=== PATIENT | female | born 1985 | race Caucasian/White ===

== ENCOUNTER 2018-11-14 09:25 | Inpatient (IN) | payer OTHER, SELFPAY ==
[2018-11-14 09:43] VITALS: BMI 24.3
[2018-11-14] MEDS: Lactated Ringers 1,000 ML 50 ML IV ×2 (09:55→12:27)
[2018-11-14] MEDS: Oxytocin 30 units/NS 500 ml 30 UNITS/500 ML IV.SOLN IV (11:06)
[2018-11-14 11:47] LABS: Absolute Lymphocyte Count 1.56 X10^3/ul (0.83-4.51); Absolute Neutrophil Count 5.5 X10^3/uL (2.0-7.7); Basophil# 0.01 X10^3/uL; Basophil% 0.1 % (0-1); Eosinophil# 0.03 X10^3/uL; Eosinophils% 0.4 % (0-5); Hematocrit 34.2 % (37-47); Hemoglobin 11.6 g/dl (12.0-15.0); Lymphocyte # 1.56 X10^3/ul (4.0); Lymphocyte % 20.4 % (19-41); Mean Corp Hgb Conc 33.9 g/gl (32-36); Mean Corpuscular Hgb 32.2 pg (27.0-32.0); Mean Platelet Vol. 9.5 fl (6.2-12.0); Monocyte# 0.55 X10^3/uL; Monocyte% 7.2 % (0-10); Neutrophil % 71.8 % (47-70); POSITIVE COUNT NO; POSITIVE DIFFERENTIAL NO; POSITIVE MORPHOLOGY NO; Platelet Count 219 K/mm3 (150-450); RBC Distribution Width CV 13.4 % (11.6-14.6); RBC Distribution Width SD 46.9 fl (35.1-43.9); White Blood Count 7.7 K/mm3 (4.4-11.0)
[2018-11-14] MEDS: fentaNYL-bupivacaine (epidural) 100 ML BAG EPIDURAL (12:28)
[2018-11-14] MEDS: Oxytocin 30 units/NS 500 ml 30 UNITS/500 ML IV.SOLN 334 UNITS IV (13:25)
--- NOTE | 2018-11-14 13:35 | PCM.HP.BLA ---
History and Physical Date of Admission: 11/14/18 History of this : 32 yo female Ab0 with EDC 11/13/2018 by 9 weeks 5 days Ultrasound, presents to Labor and Delivery. care remarkable for - Plans at [facility] Pertinent Past Medical History: Non-smoker Allergies: No Known Allergies Medications: During - 28 mg iron-800 mcg tablet Review of Systems: Non-contributory PHYSICAL EXAMINATION General Appearence: 32 yo female in no acute distress Vital Signs: AF, VSS Heart: RRR without rubs or gallops Lungs: CTA x 2 Breasts: deferred Abdomen: gravid Pelvis: Cervix: 4/50 Presentation: cephalic Station: -2 AROM clear Fetus: Size: AGA Movement: present Heart: present Impression /Plan: Intrauterine . Preperations in progress for delivery. Expect
--- NOTE | 2018-11-14 13:37 | PCM.OPRPT ---
Vaginal Delivery Maternal Presentation: Elective Induction Method of Induction: Pitocin, Amniotomy Amniotic Membrane Rupture Type: Artificial Amniotic Fluid Description: Clear Final KANDI: 11/13/18 Final KANDI Source: US <20 weeks Gestational age: 40 Weeks and 1 Days Date of Procedure: 11/14/18 Pre-Operative Diagnosis: IUP Post-Operative Diagnosis: IUP Surgery/ Procedure Performed: Spontaneous Vaginal Delivery Type of Anesthesia: Epidural Description of Procedure: Spontaneous vaginal delivery of a viable male infant with Apgars of 8/9 from an occiput anterior presentation with clear amniotic fluid and normal three-vessel placenta. No episiotomy. Second-degree midline laceration repaired with 3-0 Rapide suture under epidural anesthesia. Sponges okay. Delivery physician: Brent Valentin MD. Presentation: Vertex Placental Delivery Description: Spontaneous Placenta Disposition: [facility] Cord Vessel Description: 3 Vessels Cord Entanglement: None Estimated Blood Loss: 250 cc Infant A gender: Male (1 minute): 8 (5 minute): 9 Episiotomy Description: None Laceration: Midline, 2nd degree Medications given after delivery: IV Pitocin Complications: None
--- NOTE | 2018-11-14 13:39 | PCM.DCVAG ---
Discharge Diet: No Restrictions Discharge Activity: May Shower, May Take a Tub Bath May resume sexual activity in: 4-6 weeks Additional Activity Instructions:: Nothing in the vagina for 4-6 weeks. You may return to work/school in 6 weeks. Call your doctor if you observe: Fever of 101 or Higher, Inability to urinate, Inability to have a bowel movement, Using more than one pad per hour Additional Instructions: If you experience any of the following, contact your healthcare provider. Bleeding that soaks a pad every hour for 2 hours Unrelieved incision or abdominal pain Swelling, redness, discharge or bleeding from your incision or episiotomy site Your incision begins to separate Problems urinating (including inability to urinate or burning while urinating). Visual changes Severe headache Flu-like symptoms Pain or redness in one of both of your breasts Pain, warmth, tenderness or swelling in your legs, especially the calf area Frequent nausea and vomiting Symptoms of depression or anxiety If you experience any of the following, call 911 or go to the nearest Emergency Room. Chest pain Problems breathing Seizure activity Partial or complete paralysis of a body part, slurred speech, weakness or drooping of the face, or a sudden inability to walk or hold your balance Allergies/Adverse Reactions: Allergies No Known Allergies Allergy (Verified 11/14/18 09:43) Medications to take at Discharge Vits [Prenatabs FA] 1 tablet PO DAILY 11/14/18 Please Follow Up With: Brent Valentin MD - [phone] When: Call to make an appointment with your doctor in 6 weeks. Primary Care Physician: Mikal Ritter MD [Primary Care Provider] - Test Results: Test results from this visit will be discussed in further detail at your follow-up appointment, if applicable.
--- NOTE | 2018-11-14 13:40 | DCINST_ITS ---
Discharge Diet: No Restrictions Discharge Activity: May Shower, May Take a Tub Bath May resume sexual activity in: 4-6 weeks Additional Activity Instructions:: Nothing in the vagina for 4-6 weeks. You may return to work/school in 6 weeks. Call your doctor if you observe: Fever of 101 or Higher, Inability to urinate, Inability to have a bowel movement, Using more than one pad per hour Additional Instructions: If you experience any of the following, contact your healthcare provider. * Bleeding that soaks a pad every hour for 2 hours * Unrelieved incision or abdominal pain * Swelling, redness, discharge or bleeding from your incision or episiotomy site * Your incision begins to separate * Problems urinating (including inability to urinate or burning while urinating). * Visual changes * Severe headache * Flu-like symptoms * Pain or redness in one of both of your breasts * Pain, warmth, tenderness or swelling in your legs, especially the calf area * Frequent nausea and vomiting * Symptoms of depression or anxiety If you experience any of the following, call 911 or go to the nearest Emergency Room. * Chest pain * Problems breathing * Seizure activity * Partial or complete paralysis of a body part, slurred speech, weakness or drooping of the face, or a sudden inability to walk or hold your balance Allergies/Adverse Reactions: Allergies No Known Allergies Allergy (Verified 11/14/18 09:43) Medications to take at Discharge Vits [Prenatabs FA] 1 tablet PO DAILY 11/14/18 Please Follow Up With: Brent Valentin MD - [phone] When: Call to make an appointment with your doctor in 6 weeks. Primary Care Physician: Mikal Ritter MD [Primary Care Provider] - Test Results: Test results from this visit will be discussed in further detail at your follow- up appointment, if applicable.
[2018-11-14] MEDS: Oxytocin 30 units/NS 500 ml 30 UNITS/500 ML IV.SOLN 167 UNITS IV (13:55)
[2018-11-14 15:25] LABS: Chlamydia Trachomatis by PCR Negative (Negative); Neisserai gonorrhoeae by PCR Negative (Negative); Probe Check PASS; Sample Adequacy Control PASS; Specimen Processing Control PASS
[2018-11-14] MEDS: Ibuprofen 600 MG Tablet PO (16:31)
[2018-11-14 20:30] VITALS: BP 102/59; PULSE 81; RESP 18; TEMP 36.7
[2018-11-14] MEDS: Acetaminophen 500 MG Tablet 1000 MG PO (20:51)
[2018-11-15 00:10] VITALS: BP 103/59; PULSE 76; RESP 18; TEMP 36.7
[2018-11-15] MEDS: Ibuprofen 600 MG Tablet PO ×3 (03:25→17:45)
[2018-11-15 03:29] VITALS: BP 112/65; PULSE 87; RESP 18; TEMP 36.6
[2018-11-15] MEDS: Acetaminophen 500 MG Tablet 1000 MG PO (08:27)
[2018-11-15 08:35] VITALS: BP 100/59; PULSE 74; RESP 14; TEMP 36.8
--- NOTE | 2018-11-15 09:24 | PCM.PN.OB ---
Subjective: Patient without complaints. Breast-feeding going well. Minimal vaginal bleeding reported. Pain well controlled. - Physical Exam Vital Signs Temp Pulse Resp BP 98.3 F 74 14 100/59 L 11/15/18 08:35 11/15/18 08:35 11/15/18 08:35 11/15/18 08:35 Oxygen Delivery Method Room Air Weight: 146 lb 2.664 oz Body Mass Index (BMI) 24.3 Intake and Output for Last 24 Hours 11/13/18 11/14/18 11/15/18 23:59 23:59 23:59 Output Total 1949 Balance -1949 Laboratory Tests Past 24 Hrs 11/14/18 11/14/18 11/14/18 09:55 09:55 11:15 WBC 7.7 RBC 3.60 L Hgb 11.6 L Hct 34.2 L MCV 95.0 MCH 32.2 H MCHC 33.9 RDW 13.4 RDW Differential 46.9 H Plt Count 219 MPV 9.5 Immature Gran % (Auto) 0.100 Neut % (Auto) 71.8 H Lymph % (Auto) 20.4 [place] % (Auto) 7.2 Eos % (Auto) 0.4 Baso % (Auto) 0.1 Absolute Neuts (auto) 5.5 Absolute Lymphs (auto) 1.56 Total Counted Not Reportable Chlam trachomat DNA PCR Negative N.gonorrhoeae DNA (PCR) Negative Blood Type A POSITIVE Antibody Screen NEGATIVE Medical Necessity - Tobacco Use Smoking Status: Never smoker Assessment/Plan Doing well day #1 status post spontaneous vaginal delivery. Continuing present care.
[2018-11-15 12:20] VITALS: BP 90/54; PULSE 74; RESP 16; TEMP 36.7
[2018-11-15 15:55] VITALS: BP 107/64; PULSE 78; RESP 16; TEMP 36.8; O2SAT 99
[2018-11-15 19:50] VITALS: BP 103/62; PULSE 75; RESP 18; TEMP 36.6
[2018-11-15] MEDS: Senna/Docusate Sodium 1 Tablet PO (20:11)
[2018-11-16 02:00] VITALS: BP 98/55; PULSE 74; RESP 18; TEMP 36.4
[2018-11-16] MEDS: Ibuprofen 600 MG Tablet PO ×2 (04:07→10:23)
[2018-11-16 10:00] VITALS: BP 102/62; PULSE 78; RESP 16; TEMP 36.6
--- NOTE | 2018-11-16 10:38 | PCM.PN.OB ---
Subjective: Patient without complaints. Breast-feeding going well. Ready to go home today. - Physical Exam Vital Signs Temp Pulse Resp BP Pulse Ox 97.9 F 78 16 102/62 99 11/16/18 10:00 11/16/18 10:00 11/16/18 10:11/16/18 10:11/15/18 15:55 Oxygen Delivery Method Room Air Weight: 146 lb 2.664 oz Body Mass Index (BMI) 24.3 Intake and Output for Last 24 Hours 11/14/18 11/15/18 11/16/18 23:59 23:59 23:59 Output Total 1949 Balance -1949 / -1949 Medical Necessity - Tobacco Use Smoking Status: Never smoker Assessment/Plan Doing well day #2 status post routine vaginal delivery. Will release to home with routine instructions.
== END 2018-11-16 12:10 | disposition home or self-care (01) | DRG 807 ==
LOC: WP 09:40
PROVIDERS: Admitting Provider Obstetrics & Gynecology; Family Provider Family Medicine; PCP Family Medicine; Referring Provider Obstetrics & Gynecology; Visit Provider Obstetrics & Gynecology
DX: O70.1 Second degree perineal laceration during delivery (principal); Z37.0 Single live birth; Z3A.40 40 weeks gestation of pregnancy
CPT/HCPCS: 59025; 59050; 85025; 86850; 86900; 87491; 87591; 99218; J7120; G0378

== ENCOUNTER → 2020-06-28 | Outpatient (CLI) | payer OTHER, SELFPAY ==
[2020-07-01 03:07] LABS: Chlamydia By Nucleic Acid AMP Negative (Negative)
[2020-07-01 06:07] LABS: Gonococcus By Nucleic Acid AMP Negative (Negative)
[2020-07-03 16:37] LABS: HPV Reflexed? NOT INDICATED
== END | disposition home or self-care (01) ==
PROVIDERS: PCP Family Medicine; Visit Provider Obstetrics & Gynecology
DX: Z12.4 Encounter for screening for malignant neoplasm of cervix (principal); Z11.3 Encounter for screening for infections with a predominantly sexual mode of transmission
CPT/HCPCS: 87491; 87591; 88175; G0145

== ENCOUNTER → 2021-01-24 | Outpatient (CLI) | payer OTHER, SELFPAY | END | disposition home or self-care (01) | LOC: LABSPEC 17:28 | PROVIDERS: PCP Family Medicine; Visit Provider Obstetrics & Gynecology | DX: Z36.85 Encounter for antenatal screening for Streptococcus B (principal) | CPT/HCPCS: 87081 ==

== ENCOUNTER 2021-02-14 17:45 | Inpatient (IN) | payer OTHER, SELFPAY ==
[2021-02-14] VITALS (28 sets, daily range): BP systolic 90–124; BP diastolic 49–70; PULSE 88–116; TEMP 36.4–37.2; O2SAT 66–100; BMI 29.2
--- NOTE | 2021-02-14 18:31 | HP.PCM.OB_ITS ---
History and Physical Date of Admission: 02/14/21 Chief complaint: Nonreassuring testing History present illness: 35-year-old G3, P2 at 39 weeks and 3 days with KANDI: 02/18/2021 9-week ultrasound arrives with nonreassuring testing. Denies headache, chest pain, shortness of breath, nausea vomiting, right upper quadrant pain. Patient states good movement. Obstetric history: G1: 38-week female 02/24/2016 G2: 40-week male 11/14/2018 G3: Current Past medical history: Denies Medications: vitamin Past surgical history: [place] teeth extraction Allergies: No known drug allergies Social history: Denies history of smoking, alcohol use, drug use Review of systems: Besides above pertinent positives were review systems performed found to be negative Physical exam: General: Normal-appearing no acute distress HEENT: Normocephalic atraumatic no cervical adenopathy Cardiac/respiratory: No use of accessory muscles, nonlabored breathing Abdomen: Soft, nontender, gravid Extremities: No peripheral edema normal peripheral pulses Psych: Normal affect normal demeanor nonpressured speech Assessment plan: 35-year-old G3, P2 at 39 weeks and 3 days with nonreassuring testing. For induction of labor at term today via Pitocin and AROM. GBS negative. Assuming stable heart tones will continue with vaginal delivery. Patient for epidural, to see anesthesia. Routine orders. CEFM
[2021-02-14] MEDS: Lactated Ringers 500 ML 999 ML IV ×2 (21:18→22:30)
[2021-02-14] MEDS: Lactated Ringers 1,000 ML 200 ML IV (21:18)
[2021-02-14 21:35] LABS: Absolute Lymphocyte Count 1.94 X10^3/uL (0.83-4.51); Basophil# 0.02 X10^3/uL; Basophil% 0.2 % (0-1); Eosinophil# 0.02 X10^3/uL; Eosinophils% 0.2 % (0-5); Hematocrit 38.8 % (37-47); Hemoglobin 13.2 g/dL (12.0-15.0); Lymphocyte # 1.94 X10^3/ul (0.83-4.51); Lymphocyte % 16.5 % (19-41); Mean Corpuscular Hgb 33.6 pg (27.0-32.0); Mean Corpuscular Volume 98.7 fL (81-99); Mean Platelet Vol. 10.3 fl (6.2-12.0); Monocyte# 0.69 X10^3/uL; Monocyte% 5.9 % (0-10); NRBC Flagged by Analyzer 0 % (0-5); Neutrophil # 9.03 X10^3/uL (2.7-7.7); Neutrophil % 76.7 % (47-70); Platelet Count 239 K/mm3 (150-450); RBC Distribution Width CV 12.8 % (11.6-14.6); RBC Distribution Width SD 46.2 fl (35.1-43.9); Red Blood Count 3.93 M/mm3 (4.2-5.4); White Blood Count 11.8 K/mm3 (4.4-11.0)
[2021-02-14] MEDS: fentaNYL-bupivacaine (epidural) 100 ML BAG EPIDURAL (22:00)
--- NOTE | 2021-02-14 23:04 | PCM.PN.OB ---
Subjective Subjective Patient now comfortable with epidural Objective Data Objective Data Vital Signs: Vital Signs Temp Pulse BP Pulse Ox 99.0 F 94 124/61 H 100 02/14/21 21:46 02/14/21 23:02 02/14/21 23:02 02/14/21 23:01 Weight: 150 lb Body Mass Index (BMI) 29.2 Lab / Micro Data Result Diagrams: 02/14/21 19:43 Labs: Laboratory Results - last 24 hr 02/14/21 19:43: WBC 11.8 H, RBC 3.93 L, Hgb 13.2, Hct 38.8, MCV 98.7, MCH 33.6 H, MCHC 34.0, RDW Std Deviation 46.2 H, RDW Coeff of [place] 12.8, Plt Count 239, MPV 10.3, Immature Gran % (Auto) 0.500, Neut % (Auto) 76.7 H, Lymph % (Auto) 16.5 L, [place] % (Auto) 5.9, Eos % (Auto) 0.2, Baso % (Auto) 0.2, Absolute Neuts (auto) 9.0 H, Absolute Lymphs (auto) 1.94, Nucleated RBC % 0 Micro: Microbiology 02/14/21 21:20 Mucosa - Nose SARS-CoV-2 Antigen (Rapid) - Final Physical Exam Const alert, oriented x3, no apparent distress, average body habitus, healthy appearing and well nourished HEENT normocephalic and moist oral mucous membranes Head and Scalp: atraumatic Neck full ROM Resp normal respiratory effort, no retractions and no use of accessory muscles Narrative: Pelvic exam: /-3. AROM clear fluid Extremity normal to inspection, full ROM and no clubbing, cyanosis or edema Skin no rashes or lesions noted and no wounds Psych mental status grossly normal, affect normal, speech normal and activity/motor behavior normal NST FHR Rate Baby A Baseline: 140 Variability:: Moderate Accelerations:: 15 x 15 Decelerations:: None FHR Category:: Category I Uterine Activity:: Every 8 minutes Assessment & Plan (1) : PLAN: Patient seen and examined. AROM for clear fluid. Will augment with Pitocin. Now comfortable with epidural.
[2021-02-14] MEDS: Oxytocin 30 units/NS 500 ml 30 UNITS/500 ML IV.SOLN IV (23:35)
[2021-02-15] VITALS (19 sets, daily range): BP systolic 91–115; BP diastolic 51–66; PULSE 68–93; RESP 16–18; TEMP 36.4–36.9; O2SAT 98
[2021-02-15] MEDS: Oxytocin 30 units/NS 500 ml 30 UNITS/500 ML IV.SOLN 334 UNITS IV (00:21)
--- NOTE | 2021-02-15 00:33 | EX.PCM.OBRPT ---
Vaginal Delivery Findings Description of Procedure: Normal spontaneous vaginal delivery of a viable female infant, vertex RADHA. Head and shoulders delivered with ease. Cord cut and clamped. Baby handed off to mom. Placenta delivered via cord traction and fundal massage. Second-degree midline perineal laceration noted and repaired in typical fashion. EBL 300 cc Apgars 9/9
[2021-02-15] MEDS: 0.9% Saline Lock 10 ML Syringe IV (02:38)
[2021-02-15] MEDS: Ibuprofen 600 MG Tablet PO ×4 (02:38→22:48)
--- NOTE | 2021-02-15 14:57 | PN.OBGYN_ITS ---
Subjective Subjective No overnight complaints. Pain well controlled. Objective Data Objective Data Vital Signs: Vital Signs Temp Pulse Resp BP Pulse Ox 98.0 F 70 16 105/58 L 100 02/15/21 12:47 02/15/21 12:47 02/15/21 12:47 02/15/21 12:47 02/14/21 23:01 Weight: 150 lb Body Mass Index (BMI) 29.2 Intake & Output: Intake and Output for Last 24 Hours 02/13/21 02/14/21 02/15/21 23:59 23:59 23:59 Intake Total 1240 / 1240 754.73 / 754.73 Balance 1240 / 1240 754.73 / 754.73 Lab / Micro Data Result Diagrams: 02/14/21 19:43 Labs: Laboratory Results - last 24 hr 02/14/21 19:43: WBC 11.8 H, RBC 3.93 L, Hgb 13.2, Hct 38.8, MCV 98.7, MCH 33.6 H , MCHC 34.0, RDW Std Deviation 46.2 H, RDW Coeff of [place] 12.8, Plt Count 239, MPV 10.3, Immature Gran % (Auto) 0.500, Neut % (Auto) 76.7 H, Lymph % (Auto) 16.5 L, [place] % (Auto) 5.9, Eos % (Auto) 0.2, Baso % (Auto) 0.2, Absolute Neuts (auto) 9.0 H, Absolute Lymphs (auto) 1.94, Nucleated RBC % 0 02/14/21 19:43: Blood Type A POSITIVE, Antibody Screen NEGATIVE Micro: Microbiology 02/14/21 21:20 Mucosa - Nose SARS-CoV-2 Antigen (Rapid) - Final Physical Exam Const alert, oriented x3, no apparent distress, average body habitus, healthy appearing and well nourished HEENT normocephalic and moist oral mucous membranes Head and Scalp: atraumatic Neck full ROM Resp normal respiratory effort, no retractions and no use of accessory muscles Extremity normal to inspection, full ROM and no clubbing, cyanosis or edema Psych mental status grossly normal, affect normal, speech normal and activity/motor behavior normal Assessment & Plan (1) : PLAN: day 1. Breast-feeding. Pain well controlled. Patient with positive hepatitis C antibody negative hepatitis C viral load undetectable. Patient with no hepatitis exposure, denies IV drug use, has not had blood transfusions. False positive versus previous hepatitis C infection. Will obtain repeat hepatitis C antibody and reevaluate. Likely discharge home dago [facility]
[2021-02-16 01:20] VITALS: BP 89/44; PULSE 73; RESP 18
[2021-02-16] MEDS: Ibuprofen 600 MG Tablet PO (06:25)
--- NOTE | 2021-02-16 07:50 | PCM.PN.OB ---
Subjective Subjective No issues overnight. Inquires about Hep C testing. She is nursing, feeding well. Denies heavy lochia. She is sore this morning, but pain is manageable with Ibuprofen. No complaints. Objective Data Objective Data Vital Signs: Vital Signs Temp Pulse Resp BP Pulse Ox 98.3 F 73 18 89/44 L 98 02/15/21 20:51 02/16/21 01:20 02/16/21 01:20 02/16/21 01:20 02/15/21 16:15 Oxygen Delivery Method Room Air Weight: 68.039 kg Body Mass Index (BMI) 29.2 Intake & Output: Intake and Output for Last 24 Hours 02/14/21 02/15/21 02/16/21 23:59 23:59 23:59 Intake Total 1240 / 1240 754.73 / 754.73 Balance 1240 / 1240 754.73 / 754.73 Lab / Micro Data Result Diagrams: 02/14/21 19:43 Micro: Microbiology 02/14/21 21:20 Mucosa - Nose SARS-CoV-2 Antigen (Rapid) - Final Physical Exam Const alert, oriented x3 and no apparent distress Resp normal respiratory effort and normal air movement Cardio regular rate, regular rhythm, S1 normal heart sound and S2 normal heart sound Narrative: Fundus at 1 fw above umbilicus Uterus Palpation: uterus fundus firm and other OB fundus nontender Extremity no calf tenderness Neuro oriented x3 Assessment & Plan (1) (spontaneous vaginal delivery): COMMENT: PPD#1 s/p PLAN: Doing well. HCV Ab positive and neg viral load in . Rpt HCV Ab pending A pos, Rubella immune d/c home today
--- NOTE | 2021-02-16 07:55 | PCM.DC ---
Discharge Instructions Diet Discharge Diet: No restrictions Activity Discharge Activity: Return to Normal Activity May resume sexual activity in: 4-6 weeks Lifting Restrictions: 20lb Dressing / Incision Call your doctor if you observe: Fever of 101 or Higher, Using more than 1 pad per hour, Shortness of breath, Chest pain, Calf discomfort, Uncontrolled pain and - (Persistent or severe headache) Follow Up Care Please Follow Up With: Gricel Lucero MD When: 3 weeks for telehealth follow up 6 weeks for visit Test Results: Test results from this visit will be discussed in further detail at your follow-up appointment, if applicable. Discharge Plan Admission Admit Date/Time: 02/14/21 17:45 Primary Reason for Your Visit: Vaginal delivery Attending Provider: Dae Pardo Primary Care Provider: Mikal Ritter Instructions Patient Instructions: After a Vaginal Discharge Orders/Prescriptions Prescriptions: New ibuprofen 600 mg Tablet 600 mg PO Q8H PRN PRN (Reason: Pain) Qty: 30 RF: 0 Continued Prenatabs FA 1 TABLET tablet 1 tab PO DAILY RF: 0 Referrals / Follow Up: Mikal Ritter MD [Primary Care Provider] - Disposition Disposition (needs filled in before D/C Order can be placed): Home, Self Care
[2021-02-16 08:53] VITALS: BP 91/57; PULSE 72; RESP 18; TEMP 36.9
[2021-02-16 09:24] LABS: Hepatitis C Antibody Non-Reactive (Nonreactive)
== END 2021-02-16 11:30 | disposition home or self-care (01) | DRG 807 ==
PROVIDERS: Admitting Provider Obstetrics & Gynecology; PCP Family Medicine; Visit Provider Obstetrics & Gynecology
DX: O35.9XX0 Maternal care for (suspected) fetal abnormality and damage, unspecified, not applicable or unspecified (principal); O70.1 Second degree perineal laceration during delivery; Z20.822 Contact with and (suspected) exposure to COVID-19; Z3A.39 39 weeks gestation of pregnancy; Z37.0 Single live birth
CPT/HCPCS: 59025; 59050; 85025; 86803; 86850; 86900; 86901; 87426; 99218; J7120; A4216; G0378